=== PATIENT | male | born 1995 | race Hispanic/Latino ===

== ENCOUNTER 2023-02-13 14:53 | Emergency (ER) | payer MEDICAID, OTHER ==
[~2023-02-13] VITALS: Ht 167.6 cm; Wt 85.3 kg
[2023-02-13] MEDS ORDERED: ONDANSETRON 4MG INJ IVP ONE (15:30)
[2023-02-13] MEDS ORDERED: MORPHINE 4 MG SYG IVP ONE (15:30)
[2023-02-13] MEDS ORDERED: FAMOTIDINE 20MG VIAL IV ONE (15:30)
[2023-02-13] MEDS ORDERED: KETOROLAC 30MG VIAL (30MG/ML) IVP ONE (15:30)
[2023-02-13] MEDS ORDERED: 0.9%NACL 1000ML 1,000 ML IV ONE (15:30)
[2023-02-13 15:41] LABS: APPEARANCE,URINE CLEAR (CLEAR); BASOPHILS # (AUTO) 0.03 K/uL (0.00-0.20); BASOPHILS % (AUTO) 0.3 % (0.0-5.0); BILIRUBIN,URINE NEGATIVE (NEGATIVE); COLOR,URINE LIGHT-YELLOW (YELLOW); EOSINOPHILS # (AUTO) 0.22 K/uL (0.00-0.70); EOSINOPHILS % (AUTO) 1.9 % (0.0-8.0); GLUCOSE, URINE (UA) NEGATIVE (NEGATIVE); IMMATURE GRANULOCYTE ABSOLUTE 0.05 K/uL (0-1); KETONES,URINE NEGATIVE (NEGATIVE); LEUKOCYTE ESTERASE ,URINE NEGATIVE Leu/uL (NEGATIVE); LYMPHOCYTES # (AUTO) 1.5 K/uL (1.0-4.8); LYMPHOCYTES % (AUTO) 12.8 % (21.0-51.0); MEAN CORPUSCULAR HEMOGLOBIN 30.2 pg (27.0-33.0); MEAN CORPUSCULAR HGB CONC 34.1 g/dL (32.0-36.0); MEAN CORPUSCULAR VOLUME 88.6 fL (79-99); MONOCYTES # (AUTO) 0.6 K/uL (0.1-1.0); MONOCYTES % (AUTO) 4.7 % (3.0-13.0); NEUTROPHILS # (AUTO) 9.3 K/uL (1.8-7.7); NEUTROPHILS % (AUTO) 79.9 % (40.0-77.0); NITRATE,URINE NEGATIVE (NEGATIVE); OCCULT BLOOD,URINE LARGE (NEGATIVE); PLATELET COUNT (AUTO) 359 K/uL (130-400); PROTEIN,URINE NEGATIVE (NEGATIVE); RED BLOOD CELL COUNT(AUTO) 4.63 MIL/uL (4.50-6.20); RED CELL DISTRIBUTION WIDTH 12.4 % (11.0-15.5); UROBILINOGEN,URINE 0.2 mg/dL (0.2-1.0); WHITE BLOOD COUNT (AUTO) 11.6 K/uL (4.8-10.8)
[2023-02-13 15:42] LABS: ADD UA MICROSCOPIC YES
[2023-02-13 15:44] LABS: MUCUS,URINE RARE LPF (None Seen); RBC,URINE TNTC /HPF (0-1); SQUAMOUS EPITHELIAL CELL,UR RARE /HPF (0-2); WBC,URINE 0-1 /HPF (0-1)
[2023-02-13 15:50] LABS: CREATININE 1.2 mg/dL (0.5-1.5); POTASSIUM 3.8 mmol/L (3.5-5.1)
[2023-02-13 15:56] LABS: BILIRUBIN,TOTAL 0.4 mg/dL (0.2-1.0); TOTAL PROTEIN, SERUM 8.2 g/dL (6.0-8.3)
[2023-02-13] MEDS ORDERED: IBUP-2070 PO (18:20)
[2023-02-13] MEDS ORDERED: CIPR-278 PO (18:20)
[2023-02-13] MEDS ORDERED: TAMS-1 PO (18:20)
[2023-02-13] MEDS ORDERED: TAMSULOSIN HCL 0.4 MG CAP.ER.24H PO ONE (18:30)
[2023-02-13] MEDS ORDERED: CEFTRIAXONE 1G VIAL IVPB ONE (18:30)
[2023-02-13 19:05] VITALS: BP 130/74; PULSE 78; RESP 16; O2SAT 98
== END 2023-02-13 19:11 | disposition home or self-care (01) ==
LOC: EDH 14:53
DX: N20.0 Calculus of kidney (principal)
CPT/HCPCS: 99285; 74176; 96374; 96375; 96361; 80053; 85025; 81001; 36415; J3490; J7030; J2405; J2270; J1885